=== PATIENT | female | born 1960 | race Caucasian/White ===

== ENCOUNTER 2020-01-11 17:25 | Emergency (ER) | payer BC ==
[~2020-01-11] VITALS: Ht 160 cm; Wt 77.1 kg
[2020-01-11 20:02] VITALS: BP 130/72
== END 2020-01-11 20:02 | disposition home or self-care (01) ==
LOC: M.ERS 17:25
DX: S00.83XA Contusion of other part of head, initial encounter (principal); R94.02 Abnormal brain scan; Z90.710 Acquired absence of both cervix and uterus; W18.39XA Other fall on same level, initial encounter; Y93.89 Activity, other specified; Y92.89 Other specified places as the place of occurrence of the external cause; Y99.8 Other external cause status

== ENCOUNTER 2020-01-20 15:06 | Emergency (ER) | payer BC ==
[~2020-01-20] VITALS: Ht 160 cm; Wt 77.1 kg
[2020-01-20] MEDS ORDERED: CLEOCIN HCL300 MG PO (15:39)
[2020-01-20 16:13] VITALS: BP 131/81
== END 2020-01-20 16:14 | disposition home or self-care (01) ==
LOC: M.ERS 15:06
DX: L03.211 Cellulitis of face (principal); R22.0 Localized swelling, mass and lump, head; Z90.710 Acquired absence of both cervix and uterus